=== PATIENT | female | born 1995 | race Caucasian/White ===

== ENCOUNTER 2021-05-13 11:12 | Inpatient (IN) | payer BC ==
[~2021-05-13] VITALS: Ht 175.3 cm; Wt 108.9 kg
[2021-05-13 11:51] LABS: HEMOGLOBIN 11.5 gm/dl (12.3-15.3); RED BLOOD COUNT 4.09 M/UL (4.00-5.10); WHITE BLOOD COUNT 11.8 K/UL (4.5-11.0)
[2021-05-13] MEDS ORDERED: PRENATABS RX T1 EACH PO (11:59)
[2021-05-13] MEDS ORDERED: FAMOTIDINE20 MG PO (11:59)
[2021-05-14 03:41] LABS: HEMOGLOBIN 10.1 gm/dl (12.3-15.3)
[2021-05-14] MEDS ORDERED: DOCUSATE SODIU100 MG PO (12:24)
[2021-05-14] MEDS ORDERED: HYDROCODONE-AC1 EAC1 PO (12:24)
[2021-05-14] MEDS ORDERED: IBUPROFEN800 MG PO (12:24)
== END 2021-05-14 16:17 | disposition home or self-care (01) | DRG 787 ==
LOC: GENOP 11:12 → OB 11:23
PROVIDERS: ADMIT Obstetrics & Gynecology
PROC: 10D00Z1 Extraction of Products of Conception, Low, Open Approach (ICD-10-PCS; principal; 2021-05-13 12:46)
DX: O41.03X0 Oligohydramnios, third trimester, not applicable or unspecified (principal); O44.23 Partial placenta previa NOS or without hemorrhage, third trimester; O13.4 Gestational [pregnancy-induced] hypertension without significant proteinuria, complicating childbirth; Z37.0 Single live birth; Z82.49 Family history of ischemic heart disease and other diseases of the circulatory system; Z81.1 Family history of alcohol abuse and dependence; Z83.3 Family history of diabetes mellitus; Z83.438 Family history of other disorder of lipoprotein metabolism and other lipidemia; Z3A.36 36 weeks gestation of pregnancy
CPT/HCPCS: 36415; 81001; 82800; 85014; 85018; 85025; 86900; 86901; C9113; J0690; J1200; J2274; J2370; J2405; J2550; J2590; J7120; U0002